=== PATIENT | female | born 1955 | race Caucasian/White ===

== ENCOUNTER 2018-02-28 13:08 | Outpatient (CLI) | payer MEDICAID, SELFPAY ==
--- NOTE | 2018-02-28 13:50 | DI.RAD_ITS ---
SYMPTOM/DIAGNOSIS: LT FOOT PAIN, M79.672 LEFT FOOT: Three views. There is mild narrowing and spurring at the first metatarsal phalangeal joint. There is a small spur at the plantar surface of the calcaneus. The joint spaces are otherwise well maintained. The bones are intact and normally mineralized. The soft tissues are unremarkable. IMPRESSION: Mild degenerative changes of the left foot.
== END 2018-02-28 13:28 ==
PROVIDERS: Visit Provider Podiatrist Foot & Ankle Surgery
DX: M79.672 Pain in left foot (principal); M19.072 Primary osteoarthritis, left ankle and foot; M77.32 Calcaneal spur, left foot
CPT/HCPCS: 73630

== ENCOUNTER 2018-08-23 10:09 | Outpatient (REF) | payer MEDICAID, SELFPAY ==
--- NOTE | 2018-08-22 15:30 | PAPFT_PTH ---
PATIENT: Heather Granados LOC: [facility] U#:[id number] AGE/SX: 63/F ROOM: RE08/23/[address]: Shasta Torres APRN : 1955 BED: DIS: 08/23/2018 SPEC #: [id number] RECD: 08/23/18 13:18 STATUS: COURT [place] #: [id number] MARCO: 08/22/18 15:[address]: Shasta Torres DEPT: [facility] Cytology RECD BY: Liz Stone Tissues: 1 - CX/ENDOCX FOR PAP SMEARS Procedures: PAP THIN PREP/UVM Screening Comments: [id number] (UNSATISFACTORY FOR EVALUATION)
== END 2018-08-23 10:29 ==
LOC: LBN 10:09
DX: Z12.4 Encounter for screening for malignant neoplasm of cervix (principal); Z11.51 Encounter for screening for human papillomavirus (HPV)
CPT/HCPCS: 88142; 87624

== ENCOUNTER 2018-11-12 11:47 | Emergency (ER) | payer MEDICAID, SELFPAY ==
[2018-11-12 11:50] VITALS: BP 135/86; PULSE 80; RESP 18; TEMP 36.8; O2SAT 96
--- NOTE | 2018-11-12 12:44 | W.ED.GENAD ---
Discharge Plan Disposition Patient Disposition: HOME Discharge Details Chief Complaint: DentalOral Clinical Impression: Abscess, dental Primary Care Provider: Shasta Torres ED Provider: Bret Nicole Home Meds and New Rx's Prescriptions: New amoxicillin 500 mg tablet 500 mg PO TID 10 Days Qty: 30 RF: 0 Continued cholecalciferol (vitamin D3) 5,000 UNIT tablet 5,000 unit PO DAILY RF: 0 Probiotic 1 EACH capsule 1 ea PO BID RF: 0 Women's Daily Multivitamin 1 EACH tablet 2 ea PO DAILY RF: 0 vitamin B complex 1 EACH capsule 1 ea PO BID RF: 0 DSF 1 tab PO BID-TID RF: 0 ascorbic acid (vitamin C) [Vitamin C] 1,000 mg tablet extended release 4,000 mg PO DAILY RF: 0 calcium carbonate [Calcium 600] 600 MG tablet 3 tab PO BID RF: 0 Immuplex 3 cap PO TID PRN RF: 0 Discharge Instructions Instructions: Dental Abscess (ED) Additional Instructions: Follow-up with your dentist on Wednesday as scheduled. Return to the emergency department if your symptoms worsen prior to follow-up appointment, concerning symptoms include fever, worsening pain, redness, difficulty opening her jaw Discharge Data Discharge Date/Time-TO BE ENTERED AT DEPARTURE: 11/12/18 12:55 Discharge Physician: Bret Nicole HPI Patient presents with dental pain right lower jaw, consistent with recent abscess. She completed a course of amoxicillin which was successful and was to have her tooth extracted however she missed her dental appointment follow-up. Over the past few days her pain and swelling have returned. Denies dysphagia, denies headache, fever, chills, lethargy. Related Data Home Medications Medication Instructions Recorded Confirmed cholecalciferol (vitamin D3) 5,000 unit PO DAILY 02/10/13 11/12/18 Immuplex 3 cap PO TID PRN 04/28/13 11/12/18 calcium carbonate [Calcium 600] 3 tab PO BID 04/28/13 11/12/18 Probiotic 1 ea PO BID 06/09/13 11/12/18 Women's Daily Multivitamin 2 ea PO DAILY 08/04/13 11/12/18 vitamin B complex 1 ea PO BID 10/10/13 11/12/18 Dsf 1 tab PO BID-TID 04/25/15 11/12/18 ascorbic acid (vitamin C) ER 1,000 4,000 mg PO DAILY tab 08/16/18 11/12/18 mg tablet,extended release amoxicillin 500 mg PO TID 10 Days #30 tab 11/12/18 Previous Rx's Medication Instructions Recorded amoxicillin 500 mg PO TID 10 Days #30 tab 11/12/18 Allergies Allergy/AdvReac Type Severity Reaction Status Date / Time tetracycline Allergy Severe Tights Verified 11/12/18 11:54 throat adhesive Allergy Mild Skin Rash Verified 11/12/18 11:54 influenza virus vaccine, Allergy Unknown STATED PER Verified 11/12/18 11:54 specific PT erythromycin base AdvReac Severe Spacey, Verified 11/12/18 11:54 disoriented ibuprofen AdvReac Severe GI upset Verified 11/12/18 11:54 venlafaxine HCl AdvReac Mild nightmres Verified 11/12/18 11:54 [From Effexor] iodine AdvReac Doesn't Verified 11/12/18 11:54 remeber sertraline HCl [From Zoloft] AdvReac weakness Verified 11/12/18 11:54 General Stated Complaint: DentalOral BRAYAN: 5 Review of Systems Constitutional Denies chills, Denies fatigue, Denies fever(s) and Denies lethargy Eyes Denies loss of vision ENT Denies nasal congestion and Denies sore throat Cardiovascular Denies chest pain and Denies dyspnea Respiratory Denies cough and Denies dyspnea Gastrointestinal Denies abdominal pain, Denies nausea and Denies vomiting Musculoskeletal Denies back pain, Denies muscle weakness and Denies numbness Integumentary/Breasts Denies rash Neurologic Denies focal weakness, Denies loss of vision and Denies numbness Endocrine Denies fatigue Hematologic/Lymphatic Denies easy bruising PFSH Social History Smoking/Tobacco Use Status: Never Alcohol Intake: never Drug use: Never Substance use type: does not use Caregiver/Support person: No Household members: significant other Housing: house Communication Needs: None Pets and animals: Yes Pets and animals: dog(s) Sexually active: No Do you think of yourself as: straight/heterosexual Current gender identity: female What is your relationship status?: living with partner How often do you talk on the phone with friends or family?: three or more times per week How often do you get together with friends or relatives?: once per week How often do you attend pentecostalism or yazidi services?: 1-3 times per year Do you belong to any clubs or organized social groups?: no Panel score (0-1 are the most socially isolated patients): 2 What type of physical activity do you participate in: decline to answer Duration: decline to answer Frequency: decline to answer Samantha/Alevism: Church Special samantha needs: No Seatbelt use: always Helmet use: Yes 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 Do you feel safe at home: Yes Do you feel safe in your relationship?: Yes Exam Const General: cooperative, healthy appearing and no acute distress HENMT Head: normal to inspection Ears: hearing grossly normal bilaterally Other: Periapical swelling and tenderness adjacent to #32 and 31 teeth Eyes EOM: EOM intact bilaterally Neck Neck: normal visual inspection Resp Effort & Inspection: normal respiratory effort Skin General skin exam: no rashes or lesions noted Neuro General: alert, awake and oriented x3 Speech: speech normal Gait: normal gait Extrem General: normal to inspection Course Vital Signs Temperature 36.8 C 11/12/18 11:50 Pulse 80 11/12/18 11:50 Respiratory Rate 18 11/12/18 11:50 Blood Pressure 135/86 11/12/18 11:50 Pulse Oximetry 96 11/12/18 11:50 Temperature 36.8 C 11/12/18 11:50 Temperature Source Skin 11/12/18 11:50 Pulse 80 11/12/18 11:50 Respiratory Rate 18 11/12/18 11:50 Respiratory Effort Non-Labored 11/12/18 11:56 Blood Pressure 135/86 11/12/18 11:50 Blood Pressure Position Sitting 11/12/18 11:50 Pulse Oximetry 96 11/12/18 11:50 Oxygen Delivery Method Room Air 11/12/18 11:50 Oxygen Flow Rate 0 11/12/18 11:50
== END 2018-11-12 12:55 | disposition home or self-care (01) ==
LOC: ER 12:45
PROVIDERS: Emergency Provider Physician Assistant Medical
DX: K04.7 Periapical abscess without sinus (principal)
CPT/HCPCS: 99283

== ENCOUNTER 2020-01-22 00:48 | Outpatient (CLI) | payer MEDICAID, SELFPAY ==
--- NOTE | 2020-01-22 07:45 | DI.MAMMO_ITS ---
EXAM: MAMMO SCREENING CLINICAL HISTORY: screening,Z12.39 TECHNIQUE: Mammograms were interpreted according to the usual protocol including computer analysis w [employer] CAD system, tomosynthesis and C-view imaging. COMPARISON: 2014 FINDINGS: The breasts are composed of scattered fibroglandular densities, Breast Density category B. No suspicious masses or suspicious microcalcifications are seen. No skin thickening or abnormal axillary lymph nodes are seen. There has been no significant change from prior exams. IMPRESSION: BI-RADS Category 1, Negative mammogram Yearly screening mammography is recommended. Breast Density Category B, scattered fibroglandular densities. A negative radiographic report should not delay biopsy if a dominant or clinically suspicious mass is present. Up to ten percent of cancers are not identified on mammography. A negative report may reinforce clinical impression. Adenosis and dense breasts may obscure an underlying neoplasm. False positive reports average 6 to 10%. Patient will receive a letter notifying them of these results.
== END 2020-01-22 01:08 ==
PROVIDERS: PCP Nurse Practitioner Family; Visit Provider Nurse Practitioner Family
DX: Z12.31 Encounter for screening mammogram for malignant neoplasm of breast (principal)
CPT/HCPCS: 77063; 77067

== ENCOUNTER 2020-01-31 03:31 | Outpatient (CLI) | payer MEDICAID, SELFPAY ==
[2020-01-31 13:23] LABS: Anion Gap 7.4 mmol/L (3-11); BUN 21 mg/dL (7-18); CO2 26.6 mmol/L (21.0-32.0); CREATININE 0.81 mg/dL (0.55-1.02); Calcium 8.8 mg/dL (8.5-10.1); Calculated LDL 120 mg/dL (<100); Chloride 108 mmol/L (98-107); Cholesterol 190 mg/dL (<200); Glucose 100 mg/dL (74-106); HDL Cholesterol 52 mg/dL (40-60); Potassium 4.1 mmol/L (3.5-5.1); Sodium 142 mmol/L (136-145); Triglyceride 90 mg/dL (<150)
[2020-01-31 13:29] LABS: Hemoglobin A1C 5.8 % (3.8-5.6)
== END 2020-01-31 03:51 ==
PROVIDERS: PCP Nurse Practitioner Family; Visit Provider Nurse Practitioner Family
DX: Z13.220 Encounter for screening for lipoid disorders; Z13.1 Encounter for screening for diabetes mellitus; Z01.83 Encounter for blood typing; Z00.00 Encounter for general adult medical examination without abnormal findings
CPT/HCPCS: 36415; 80048; 80061; 86900; 86901; 83036

== ENCOUNTER 2020-09-23 09:55 | Outpatient (CLI) | payer MEDICAID, SELFPAY ==
[2020-09-23 11:24] LABS: Source Nasal/Nares
[2020-09-25 09:09] LABS: COVID-19 PCR Positive (Negative)
== END 2020-09-23 09:56 | disposition home or self-care (01) ==
PROVIDERS: PCP Nurse Practitioner Family; Visit Provider Nurse Practitioner Adult Health
DX: Z20.822 Contact with and (suspected) exposure to COVID-19 (principal); J02.9 Acute pharyngitis, unspecified; R50.9 Fever, unspecified
CPT/HCPCS: 87635

== ENCOUNTER 2020-11-13 01:34 | Outpatient (CLI) | payer MEDICAID, SELFPAY ==
--- NOTE | 2020-11-13 07:30 | DI.RAD_ITS ---
Exam(s) XR FOOT LT COMPLETE EXAM: XR FOOT LT COMPLETE CLINICAL HISTORY: left foot pain at distal 4th metatarsal, M79.672. TECHNIQUE: 2D digital imaging was performed. COMPARISON: CR XR foot LT complete from 02/28/2018 FINDINGS: BONES: There is an acute oblique fracture of the proximal phalanx of the 4th toe. There is question of extension into the MTP joint. There is mild displacement of the distal fracture. No other fractu re is identified. No bony destructive lesion is seen. JOINTS: No dislocation present. SOFT TISSUE: Normal. IMPRESSION: Mildly displaced fracture of the proximal phalanx of the 4th toe as described. DATA REPOSITORY: RADIATION DOSE DELIVERED:
== END 2020-11-13 01:54 ==
PROVIDERS: PCP Nurse Practitioner Family; Visit Provider Physician Assistant
DX: M79.672 Pain in left foot (principal); M77.42 Metatarsalgia, left foot; S92.512A Displaced fracture of proximal phalanx of left lesser toe(s), initial encounter for closed fracture
CPT/HCPCS: 73630

== ENCOUNTER 2021-01-24 09:09 | Outpatient (CLI) | payer MEDICAID, SELFPAY ==
--- NOTE | 2021-01-24 08:15 | DI.RAD_ITS ---
Exam(s) XR KNEE LT 3V AP,LAT,VIOLETA EXAM: XR KNEE LT 3V AP,LAT,VIOLETA CLINICAL HISTORY: knee pain ricardo, M25.561, M25.562. TECHNIQUE: 2D digital imaging was performed. COMPARISON: No previous for comparison. FINDINGS: BONES: No acute fracture is present. No bony destructive lesion is seen. There is an enthesophyte at the superior patella. JOINTS: The knee is normally aligned. There is mild narrowing and periarticular spurring in the media l femoral tibial joint space. SOFT TISSUE: Normal. IMPRESSION: Mild degenerative changes of the left knee. DATA REPOSITORY: RADIATION DOSE DELIVERED:
--- NOTE | 2021-01-24 08:15 | DI.RAD_ITS ---
Exam(s) XR KNEE RT 3V AP,LAT,VIOLETA EXAM: XR KNEE RT 3V AP,LAT,VIOLETA CLINICAL HISTORY: knee pain ricardo, M25.561, M25.562. TECHNIQUE: 2D digital imaging was performed. COMPARISON: No previous for comparison. FINDINGS: BONES: No acute fracture is present. No bony destructive lesion is seen. JOINTS: The knee is normally aligned. No joint effusion is seen. There is mild joint space narrowing and periarticular spurring in the medial femoral tibial joint. SOFT TISSUE: Normal. IMPRESSION: Mild degenerative changes of the right knee. DATA REPOSITORY: RADIATION DOSE DELIVERED:
== END 2021-01-24 09:29 ==
PROVIDERS: PCP Nurse Practitioner Family; Visit Provider Nurse Practitioner Family
DX: M17.0 Bilateral primary osteoarthritis of knee (principal)
CPT/HCPCS: 73562

== ENCOUNTER 2021-02-05 02:41 | Outpatient (CLI) | payer MEDICAID, SELFPAY ==
[2021-02-05 12:38] LABS: Anion Gap 12.9 mmol/L (3-11); BUN 18 mg/dL (7-18); CO2 23.1 mmol/L (21.0-32.0); CREATININE 0.9 mg/dL (0.55-1.02); Calculated LDL 123 mg/dL (<100); Chloride 108 mmol/L (98-107); Cholesterol 192 mg/dL (<200); Glucose 106 mg/dL (74-106); HDL Cholesterol 50 mg/dL (40-60); Potassium 4.3 mmol/L (3.5-5.1); Sodium 144 mmol/L (136-145); Triglyceride 98 mg/dL (<150)
[2021-02-05 12:55] LABS: Hemoglobin A1C 5.8 % (<5.7)
[2021-02-06 10:26] LABS: Lyme Ab w Rflx to Lyme Confirm Negative (Negative)
[2021-02-07 14:15] LABS: Anaplasma phagocytophilum Negative (Negative); B. miyamotoi PCR Negative (Negative); Babesia divergens/MO-1 Negative (Negative); Babesia duncani Negative (Negative); Babesia microti Negative (Negative); Ehrlichia chaffeensis Negative (Negative); Ehrlichia ewingii/canis Negative (Negative); Ehrlichia muris eauclairensis Negative (Negative)
== END 2021-02-05 02:42 | disposition home or self-care (01) ==
LOC: LOS 02:41
PROVIDERS: Physician Assistant; PCP Nurse Practitioner Family; Visit Provider Nurse Practitioner Family
DX: R73.03 Prediabetes (principal); W57.XXXA Bitten or stung by nonvenomous insect and other nonvenomous arthropods, initial encounter
CPT/HCPCS: 36415; 80048; 80061; 87798; 83036; 86618

== ENCOUNTER 2021-06-24 01:03 | Outpatient (CLI) | payer MEDICARE, MEDICAID, SELFPAY ==
--- NOTE | 2021-06-24 06:30 | DI.MRI_ITS ---
Exam(s) MR LOWER JOINT RT WO EXAM: MR LOWER JOINT RT WO CLINICAL HISTORY: RT KNEE PAIN, INTERNAL DERANGEMENT,M23.91 TECHNIQUE: Multiplanar multisequence MRI of the knee was performed. COMPARISON: X-rays performed 01/24/2021 were reviewed FINDINGS: EFFUSION: There is a small amount of increased joint fluid. Although there is no Mary cyst in the m edial popliteal fossa, there is a multi-septated cystic structure behind the lateral femoral condyle which measures 4.5 cm craniocaudal by 1.4 cm maximum AP by 3.4 cm maximum width.. This is consistent with fnwkp-rfpu-ernztnihp ganglion and the M may possibly be associated with meniscal tear described below/degenerative meniscal cyst. MARROW:There is no evidence of fracture, bone contusion, nor osteochondral defects.. There are no si gnificant osseous lesions. PATELLOFEMORAL COMPARTMENT: The quadriceps tendon is intact. The patellar ligament is intact. There is some subcutaneous edema anterior to the patellar ligament. There is generalized prominent thinning of the retropatellar cartilage. This is full-thickness thinn ing over the mid facet where there is also subarticular intraosseous edema with in the posterior garza lla at this level.There is no intraosseous signal to suggest recent patellar dislocation. There are n o patellar retinacular tears. CRUCIATE LIGAMENTS: The anterior cruciate ligament is intact.The posterior cruciate ligament is intac t. MEDIAL COMPARTMENT/MEDIAL MENISCUS: There is a small tear in the posterior horn of the medial meniscu s mid level between the root and lateral 3rd. There is no bucket-handle configuration. No meniscoca psular separation although there is some mild extrusion of the meniscus. There is also intrasubstanc e signal abnormality in the outer 3rd of the posterior horn which reaches the inferior articular surf cole on the coronal images but not on the sagittal images. Meniscal root is intact.. There is significant cartilage loss in the medial compartment over the medial femoral condyle. On th e anterior weight-bearing surface there is a small osteochondral defect with subarticular edema.There are marginal osteophytes seen off both the inner and outer aspects of the medial femoral condyle. MEDIAL COLLATERAL LIGAMENT: Mild sprain signal. No high-grade tear LATERAL COMPARTMENT/LATERAL MENISCUS: There is no evidence of lateral meniscal tear.There are no cris dral defects, osteochondral defects, subarticular marrow edema, nor osteophytes evident. ILIOTIBIAL BAND: Intact LATERAL COLLATERAL LIGAMENT COMPLEX: The fibular collateral ligament is intact. The biceps femoris t endon is intact.Popliteus muscle and tendon are intact. OTHER: there is significant atrophy of the medial gastrocnemius muscle noted within the field of view of this study. IMPRESSION: 1. There is significant atrophy of the medial gastrocnemius muscle within the field of view of this study. 2. There is tear in the posterior horn of the medial meniscus, as described above. No bucket-handle configuration nor flipped fragment. Mild extrusion. 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 Also small osteophytes on both inner and outer aspec t of the medial femoral condyle. No evidence of tear in the lateral meniscus nor significant degener ative changes in the lateral compartment. 3. Advanced thinning of the retropatellar cartilage. Also small amount of subarticular edema noted i n the posterior aspect of the patella over the mid aspect where there is full-thickness cartilage thi nning. No true osteochondral defect evident at this level. 4. There is a large multi septated fluid collection in the posterior aspect of the knee behind the AC L and lateral femoral condyle. It does not appear to be emanating off of the medial meniscal tear. This multi-septated fluid collection measures 4.5 cm craniocaudal by 3.4 cm wide by 1.4 cm AP. DATA REPOSITORY:
== END 2021-06-24 01:23 ==
PROVIDERS: PCP Nurse Practitioner Family; Visit Provider Student in an Organized Health Care Education/Training Program
DX: M25.561 Pain in right knee; M23.8X1 Other internal derangements of right knee; S83.241A Other tear of medial meniscus, current injury, right knee, initial encounter; M17.11 Unilateral primary osteoarthritis, right knee; M25.461 Effusion, right knee; M94.8X6 Other specified disorders of cartilage, lower leg
CPT/HCPCS: 73721

== ENCOUNTER → 2021-06-30 10:12 | Outpatient (BNVA) | payer MEDICARE, MEDICAID, SELFPAY | PROVIDERS: PCP Nurse Practitioner Family; Referring Provider Nurse Practitioner Family; Visit Provider Student in an Organized Health Care Education/Training Program | DX: S83.231D Complex tear of medial meniscus, current injury, right knee, subsequent encounter (principal); X58.XXXD Exposure to other specified factors, subsequent encounter | CPT/HCPCS: 99214 ==

== ENCOUNTER 2022-03-09 10:55 | Outpatient (REF) | payer MEDICARE, MEDICAID, SELFPAY ==
[2022-03-09 13:52] LABS: Bilirubin Negative (Negative); Blood Large (Negative); Clarity Cloudy (Clear); Glucose Negative (Negative); Ketones Negative (Negative); Leukocyte Esterase Small (Negative); Nitrite Negative (Negative); Specific Gravity 1.015 (1.005-1.025); Urobilinogen 0.2 EU/dL (Up TO 0.2)
[2022-03-09 14:11] LABS: Bacteria Rare HPF (Negative); C & S Indicated? Yes; Casts 0-2 Hyaline LPF (Negative); Crystals Negative HPF (Negative); Epithelial Cells Few HPF (Negative); Mucus Negative (Negative); RBC >50 HPF (0-2)
== END 2022-03-09 10:56 | disposition home or self-care (01) ==
LOC: LBN 10:55
PROVIDERS: PCP Nurse Practitioner Family; Visit Provider Nurse Practitioner Family
DX: R39.89 Other symptoms and signs involving the genitourinary system (principal)
CPT/HCPCS: 81003; 81015; 87086

== ENCOUNTER 2022-04-06 03:06 | Outpatient (CLI) | payer MEDICARE, MEDICAID, SELFPAY ==
[2022-04-06 12:45] LABS: HCT 44.8 % (36.0-46.0); HGB 14.7 g/dL (11.2-15.7); MCH 29.8 pg (27.0-33.0); MCHC 32.8 % (32.0-36.0); MCV 91 fL (80-95); MPV 9.9 fL (8.0-11.0); Platelet Count 324 10^3/uL (130-400); RBC 4.94 10^6/uL (3.93-5.22); RDW 14.6 % (11.7-14.6); RDW-SD 49.1 fL; WBC 5.52 10^3/uL (4.4-10.8)
[2022-04-06 13:24] LABS: ALT 45 U/L (14-59); AST 28 U/L (15-37); Albumin 4.4 g/dL (3.4-5.0); Alkaline Phosphatase 91 U/L (46-116); Anion Gap 10.1 mmol/L (3-11); BUN 18 mg/dL (7-18); Bilirubin, Total 0.5 mg/dL (0.2-1.0); CO2 26.9 mmol/L (21.0-32.0); CREATININE 0.7 mg/dL (0.55-1.02); Calcium 9.2 mg/dL (8.5-10.1); Chloride 106 mmol/L (98-107); Estimated GFR 95.92 (mL/min/1.73m2); Glucose 109 mg/dL (74-106); Potassium 4.4 mmol/L (3.5-5.1); Sodium 143 mmol/L (136-145); TSH (W/Ref FT4) 2.88 uIU/mL (0.36-3.74); Total Protein 7.8 g/dL (6.4-8.2)
[2022-04-06 13:27] LABS: Hemoglobin A1C 5.8 % (<5.7)
== END 2022-04-06 03:07 | disposition home or self-care (01) ==
LOC: LOS 03:06
PROVIDERS: PCP Nurse Practitioner Family; Visit Provider Nurse Practitioner Family
DX: R53.83 Other fatigue (principal); R73.03 Prediabetes
CPT/HCPCS: 36415; 80053; 85027; 83036; 84443

== ENCOUNTER 2024-05-23 03:15 | Outpatient (CLI) | payer MEDICARE, SELFPAY ==
[2024-05-23 12:39] LABS: Anion Gap 3.1 mmol/L (3-11); BUN 21 mg/dL (7-18); CO2 26.9 mmol/L (21.0-32.0); CREATININE 0.9 mg/dL (0.55-1.02); Calcium 9.1 mg/dL (8.5-10.1); Calculated LDL 100 mg/dL (<100); Chloride 105 mmol/L (98-107); Cholesterol 183 mg/dL (<200); Estimated GFR 70.07 (mL/min/1.73m2); Glucose 110 mg/dL (74-106); HDL Cholesterol 60 mg/dL (40-60); Potassium 4.1 mmol/L (3.5-5.1); Sodium 135 mmol/L (136-145); Triglyceride 116 mg/dL (<150)
[2024-05-23 15:04] LABS: Hemoglobin A1C 5.8 % (<5.7)
[2024-05-23 19:20] LABS: HBs Antibody, Quant 4.9 mIU/mL (See Note); Hep B Surface Ab Negative (See Note); Hepatitis B Core Antibody Negative (Negative); Hepatitis B Surface Antigen Negative (Negative)
[2024-05-23 19:23] LABS: Hepatitis C Ab w Rflx HCV PCR Negative (Negative)
[2024-05-23 19:28] LABS: HIV-1/2 Ag & Ab Screen Negative (Negative)
== END 2024-05-23 03:16 | disposition home or self-care (01) ==
LOC: LOS 03:16
PROVIDERS: PCP Nurse Practitioner Family; Visit Provider Nurse Practitioner Family
DX: Z11.59 Encounter for screening for other viral diseases (principal); Z00.00 Encounter for general adult medical examination without abnormal findings; R73.03 Prediabetes; E78.5 Hyperlipidemia, unspecified; Z11.4 Encounter for screening for human immunodeficiency virus [HIV]
CPT/HCPCS: 36415; 80048; 80061; 86704; 86706; 86803; 87340; 87389; 83036

== ENCOUNTER → 2025-05-15 00:29 | Outpatient (CLI) | payer MEDICARE, SELFPAY ==
--- NOTE | 2025-05-15 | DI.MAMMO_ITS ---
Exam(s) MAMMO SCREENING EXAM: MAMMO SCREENING CLINICAL HISTORY: Z12.31 Screening TECHNIQUE: Mammograms were interpreted according to the usual protocol including computer analysis with CAD system, tomosynthesis and C-view imaging. COMPARISON: 2020 FINDINGS: The breasts are composed of scattered fibroglandular densities, Breast Density category B. No suspicious microcalcifications are seen in either breast. On the CC view of the right breast, there is question of an area of nodularity versus overlying fibroglandular tissue measuring 6 millimeters in the anterior tissue slightly medial to the nipple. Spot compression views and ultrasound are requested for further evaluation. No skin thickening or abnormal axillary lymph nodes are seen. There has been no significant change in the left breast from prior exams. IMPRESSION: Right breast: BI-RADS Category 0 - Incomplete: Need additional imaging evaluation Left breast: Yearly screening mammography is recommended. Breast Density - Category B - There are scattered areas of fibroglandular density. Breast density Category C or D implies that the patient has dense breast tissue. Dense breast tissue can make it harder to find cancer on a mammogram. Dense breast tissue is also associated with an increased risk of breast cancer. This information about the result of the mammogram report was provided to the patient to raise their awareness. Use this report when you speak with the patient about their risks for breast cancer, which includes their family history. At that time, you may recommend additional screening tests (Ultrasound or MRI) as these tests may add significant information. A negative radiographic report should not delay biopsy if a dominant or clinically suspicious mass is present. Up to ten percent of cancers are not identified on mammography. A negative report may reinforce clinical impression. Adenosis and dense breasts may obscure an underlying neoplasm. False positive reports average 6 to 10%. Patient will receive a letter notifying them of these results.
== END ==
PROVIDERS: Visit Provider Nurse Practitioner Family
DX: Z12.31 Encounter for screening mammogram for malignant neoplasm of breast (principal); R92.8 Other abnormal and inconclusive findings on diagnostic imaging of breast
CPT/HCPCS: 77063; 77067